=== PATIENT | male | born 1980 | race Caucasian/White ===

== ENCOUNTER → 2019-05-17 | Outpatient (CLI) | payer OTHER ==
[~2019-05-17] MED LIST: LISI20TA PO; PRAV20TA PO
--- NOTE | 2019-05-17 14:03 | Diagnostic Imaging Report ---
PROCEDURE: MRI lumbar spine. TECHNIQUE: Multiplanar, multisequence MRI of the lumbar spine was performed without contrast. INDICATION: Low back pain. Heavy lifting injury. COMPARISON: None available. FINDINGS: There is 8 mm of anterolisthesis of L5 on S1 due to chronic bilateral pars defects. No additional spondylolisthesis. No acute fracture or marrow replacing process. No stress fracture within the visualized aspects of the sacrum. The conus terminus at appropriate level and there is no clumping of the intrathecal nerve roots. Paravertebral musculature is normal. No abnormality in the retroperitoneum. At L3-L4, there is a left paracentral disc extrusion with 11 mm of inferior subligamentous extension. This completely effaces the left lateral recess and has mass effect on the descending L4 and L5 left nerve roots. Overall there is mild spinal stenosis and mild bilateral foraminal narrowing. At L4-L5, there is a central disc protrusion with posterior annular tear. This does not contact the nerve roots within the lateral recess or result in significant spinal stenosis. There is mild bilateral foraminal narrowing due to intervertebral height loss. At L4-L5, there is a pseudo-disc herniation due to anterolisthesis. No spinal stenosis or neural foraminal narrowing. [id number] bilateral foraminal narrowing due to the anterolisthesis. IMPRESSION: 1. No acute fracture. 2. 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 3. Grade 2 anterolisthesis of L5 on S1 due to chronic bilateral pars defects. Dictated by: Dictated on workstation # [id number]
== END ==
LOC: RAD 10:08
PROVIDERS: ATTEND Physician Assistant
DX: M51.26 Other intervertebral disc displacement, lumbar region (principal)
CPT/HCPCS: 72148